=== PATIENT | male | born 1995 | race African-American/Black ===

== ENCOUNTER 2021-11-24 20:53 | Emergency (ER) | payer OTHER ==
[~2021-11-24] VITALS: Ht 180.3 cm; Wt 75.0 kg
[2021-11-24 21:40] VITALS: BP 138/65
[2021-11-24 22:31] LABS: INFLUENZA A PATIENT NEGATIVE (NEGATIVE); INFLUENZA B PATIENT NEGATIVE (NEGATIVE)
--- NOTE | 2021-11-24 22:42 | PHYS DOC ---
Past Medical History Past Medical History: Asthma Past Surgical History: No Surgical History Smoking Status: Never Smoker Alcohol Use: None General Adult EDM: Chief Complaint: COUGH HPI: HPI: Patient is a 26 year old male with history of asthma who presents with 3-day history of nasal congestion, cough, body aches and headache. Patient reports associated chest wall pain when he coughs, he does not have any chest pain at rest. Patient denies sick contacts. He also denies fever, chills, focal weakness. Tonight when he went to bed, his symptoms seemed worse and he was not able to sleep, so he presented to the emergency department. He does have concern for COVID and is requiring testing before returning to work. Review of Systems: Review of Systems: Constitutional: See HPI HENT: See HPI Respiratory: See HPI Cardiovascular: Denies chest pain, palpitations or edema. GI: Denies abdominal pain, nausea, vomiting, bloody stools or diarrhea. Musculoskeletal: Denies back pain or joint pain. Integument: Denies rash or other skin lesions. Neurologic: See HPI Heart Score: C/O Chest Pain: N/A Allergies: Allergies: Allergies Coded Allergies Type Severity Reaction Last Updated Verified No Known Drug Allergies 11/24/21 No Physical Exam: PE: Constitutional: Well developed, well nourished, no acute distress, non-toxic appearance. HENT: Normocephalic, atraumatic, bilateral external ears without deformity or discharge, oropharynx moist, no oral exudates, nose without deformity, mucus noted in bilateral nares. Eyes: PERRLA, EOMI, conjunctiva normal, no discharge. Cardiovascular: Heart rate regular rhythm, no murmur. Lungs & Thorax: Mild diffuse wheezing appreciated especially in the upper lung auguste. Abdomen: Bowel sounds normal, soft, no tenderness, no masses, no pulsatile masses. Neurologic: Alert and oriented x4, function grossly intact, sensory function grossly intact, steady and symmetrical gait, no focal deficits noted. Current Patient Data: Labs: Laboratory Tests Test 11/24/21 22:08 Influenza Type A Antigen Negative (NEGATIVE) Influenza Type B Antigen Negative (NEGATIVE) SARS-CoV-2 Antigen (Rapid) Negative (NEGATIVE) Vital Signs: Vital Signs Date Time Temp Pulse Resp B/P (MAP) Pulse Ox O2 Delivery O2 Flow Rate FiO2 11/24/21 21:40 99.3 70 12 138/65 (89) 99 Room Air 99.3 Course & Med Decision Making: Course & Med Decision Making Pertinent Labs and Imaging studies reviewed. (See chart for details) Patient is a 26-year-old male with history of asthma who presents with multiple complaints. Work-up will include flu A&B swabs as well as Covid swab. Rapid swabs have all come back negative. Patient is instructed to quarantine at home until his PCR Covid test result comes back tomorrow. Patient was counseled on supportive treatment including analgesic/antipyretic [id number], cool- mist humidifier at night, Mucinex and using his inhaler as needed. Patient will be provided with a work note. All patient's questions were answered. He understands and is agreeable to the discharge plan. Dragon Disclaimer: Dragon Disclaimer: This electronic medical record was generated, in whole or in part, using a voice recognition dictation system. Departure Departure Impression: Primary Impression: Upper respiratory infection, acute Disposition: 01 HOME / SELF CARE / HOMELESS Condition: STABLE Referrals: NO PCP (PCP) Patient Instructions: Upper Respiratory Infection, Adult, [id number] Additional Instructions: You have been tested for or diagnosed with COVID-19. It is an infection caused by a new type of coronavirus. COVID-19 will cause cold-like or mild flu symptoms in most. It can cause more severe symptoms like problems breathing in some. There is no treatment for COVID-19. The body will clear the infection over time. Self-care will help to ease discomfort. Rest as needed. Healthy habits may help you feel better. Steps include: - Choose healthy foods including fruits and vegetables. Drink water throughout the day. - Get plenty of sleep each night. - If you smoke, try to quit. It may ease breathing. - Avoid alcohol. - Keep Others Healthy - The virus can spread to others. Droplets are released every time you sneeze or cough. The droplets can get into the mouth, nose, or eyes of people near you and lead to infection. To lower the chances of spreading COVID-19 to others: Stay at home until your doctor has said it is safe to leave. If you tested positive this will mean staying isolated until both of the following are true: - At least 7 days have passed since the start of illness. - You are free of fever for at least 72 hours without the use of medicine. During this time: - Avoid public areas, events, or transportation. Do not return to work or school until your doctor has said it is safe to do so. - Call ahead if you need to go to a medical center. Let them know you may have COVID-19. It will help them guide you where to go. They may also ask you to wear a facemask when you come to the office. - If you call for emergency medical services, let them know you may have COVID- 19. While at home: - Try to avoid close contact with others. Stay about 6 feet away. - If possible, spend most of your time in a separate room from others. - Use a face mask if you will be in close contact with others such as sharing a room or vehicle. - Have someone wipe down common surfaces in the home. Use household helicopter officer every day on areas like doorknobs, counters, or sinks. - Cough or sneeze into a tissue. Throw the tissue away right after use. If a tissue is not available, cough or sneeze into your elbow. - Wash your hands often. Wash them after sneezing or coughing. Use soap and water and wash for at least 20 seconds. Alcohol based hand coil cleaner can be used if soap and water is not available. - Do not prepare food for others. Avoid sharing personal items like forks, spoons, or toothbrushes. - Avoid close contact with pets while you are sick. There is no evidence of the virus passing to pets. This is a safety step until more is known about this virus. - Isolation can be frustrating. Social interaction can help. Keep in touch with friends and family through phone and tech options. You can still interact with others in your home, just keep a safe distance of about 6 feet. Follow-up: - Your doctors office will check in with you to see if there are any changes in your health. - You may be asked to keep track of symptoms to share with them. They will also let you know when you are clear to be in public again. Contact your doctor if your recovery is not going as you expect. Get emergency care if you have problems such as: - Trouble breathing - Nonstop chest pain or pressure - Changes in awareness, confusion, or problems waking - Lips or face have bluish color - Worsening of symptoms If you think you have an emergency, call for emergency medical services right away. As taken from [facility] [facility] Sodium Chloride (SALINE NASAL SPRAY) 30 Ml [place] 1-2 SPRAY NS QID, #60 ML Prov: ROULA DAVENPORT 11/24/21 Guaifenesin (GUAIFENESIN) 400 Mg Tablet 400 MG PO Q8-12HRS, #20 TAB Prov: ROULA DAVENPORT 11/24/21 Benzonatate (BENZONATATE) 100 Mg Capsule 1-2 CAP PO HS, #20 CAP Prov: ROULA DAVENPORT 11/24/21 ROULA DAVENPORT Nov 24, 2021 22:42
[2021-11-24] MEDS ORDERED: BENZ-8 PO (22:55)
[2021-11-24] MEDS ORDERED: GUAI400T78 PO (22:55)
[2021-11-24] MEDS ORDERED: SODI30SP NS (22:55)
--- NOTE | 2021-11-25 17:50 | NUR ---
IP: Informed pt of negative covid test. Pt verbalized understanding.
== END 2021-11-24 23:08 | disposition home or self-care (01) ==
LOC: ER 20:53
DX: J06.9 Acute upper respiratory infection, unspecified (principal); Z20.822 Contact with and (suspected) exposure to COVID-19; J45.909 Unspecified asthma, uncomplicated
CPT/HCPCS: 87426; 87804; 99283; U0003; U0005